=== PATIENT | female | born 1965 | race Asian ===

== ENCOUNTER 2017-02-08 09:34 | Outpatient (CLI) | payer OTHER | END 2017-02-08 19:33 | disposition home or self-care (01) | LOC: MAMMO 09:34 | DX: Z12.31 Encounter for screening mammogram for malignant neoplasm of breast (principal) ==

== ENCOUNTER 2018-03-01 09:18 | Outpatient (CLI) | payer OTHER | END 2018-03-01 21:42 | disposition home or self-care (01) | LOC: MAMMO 09:18 | DX: Z12.31 Encounter for screening mammogram for malignant neoplasm of breast (principal) ==

== ENCOUNTER 2019-03-11 09:13 | Outpatient (CLI) | payer OTHER | END 2019-03-11 21:40 | disposition home or self-care (01) | LOC: MAMMO 09:13 | DX: Z12.31 Encounter for screening mammogram for malignant neoplasm of breast (principal) ==

== ENCOUNTER 2020-04-23 09:47 | Outpatient (CLI) | payer OTHER | END 2020-04-23 19:48 | disposition home or self-care (01) | LOC: MAMMO 09:47 | PROVIDERS: ATTEND Family Medicine | DX: Z12.31 Encounter for screening mammogram for malignant neoplasm of breast (principal) ==

== ENCOUNTER 2020-06-10 15:19 | Outpatient (CLI) | payer OTHER | END 2020-06-10 23:03 | disposition home or self-care (01) | LOC: INF 15:19 | PROVIDERS: ATTEND Internal Medicine | DX: Z23 Encounter for immunization (principal) | CPT/HCPCS: 96372 ==

== ENCOUNTER 2021-07-25 10:19 | Outpatient (CLI) | payer OTHER | END 2021-07-25 19:29 | disposition home or self-care (01) | LOC: RAD 10:19 | PROVIDERS: ATTEND Nurse Practitioner Family | DX: M54.32 Sciatica, left side (principal) ==

== ENCOUNTER 2021-07-29 09:39 | Outpatient (CLI) | payer OTHER | END 2021-07-29 21:10 | disposition home or self-care (01) | LOC: MRI 09:39 | PROVIDERS: ATTEND Nurse Practitioner Primary Care | DX: M54.16 Radiculopathy, lumbar region (principal) ==

== ENCOUNTER 2021-12-17 12:41 | Outpatient (CLI) | payer OTHER | END 2021-12-17 19:05 | disposition home or self-care (01) | LOC: MAMMO 12:41 | PROVIDERS: ATTEND Family Medicine | DX: Z12.31 Encounter for screening mammogram for malignant neoplasm of breast (principal) ==